=== PATIENT | male | born 2005 | race Two or more races ===

== ENCOUNTER 2025-05-19 20:22 | Emergency (ER) | payer OTHER ==
[~2025-05-19] VITALS: Ht 167.6 cm; Wt 70.9 kg
[2025-05-19 22:42] VITALS: BP 122/72; PULSE 86; RESP 20; TEMP 98.4; O2SAT 100
[2025-05-19] MEDS: BACITRACIN 28 GM OINTMENT TP ONE (22:42)
[2025-05-19] MEDS: CEPHALEXIN MONOHYDRATE 500 MG CAPSULE PO ONE (22:42)
[2025-05-19] MEDS: DOXYCYCLINE HYCLATE 100 MG TABLET PO ONE (22:42)
== END 2025-05-19 22:57 ==
LOC: EMS 20:22
DX: L03.114 Cellulitis of left upper limb (principal); L03.113 Cellulitis of right upper limb
CPT/HCPCS: 99284; Z7502; Z7610